=== PATIENT | male | born 1975 | race Two or more races ===

== ENCOUNTER 2019-02-08 11:26 | Emergency (ER) | payer OTHER ==
[~2019-02-08] VITALS: Ht 172.7 cm; Wt 85.9 kg
[2019-02-08 11:31] VITALS: BP 145/91
[2019-02-08] MEDS ORDERED: NO HOME MEDS (11:43)
[2019-02-08] MEDS ORDERED: ketorolac trometh inj. 60 MG/2 ML VIAL IM ONE (12:15)
[2019-02-08] MEDS ORDERED: LIDOcaine 1% W/epiNEPHrine 1:100,000 20ml vial IJ ONE (12:25)
[2019-02-08] MEDS ORDERED: TETanus/Pertussis (Acell)/Diphther VAC/PF (Tdap-Adult) 0.5ml syringe IMVAC ONE (12:30)
[2019-02-08] MEDS ORDERED: IBUP-1985 PO (13:21)
== END 2019-02-08 14:22 | disposition home or self-care (01) ==
LOC: ER 11:27
DX: S01.01XA Laceration without foreign body of scalp, initial encounter (principal); W01.198A Fall on same level from slipping, tripping and stumbling with subsequent striking against other object, initial encounter; Y93.89 Activity, other specified; Y92.89 Other specified places as the place of occurrence of the external cause; Y99.9 Unspecified external cause status
CPT/HCPCS: 12002; 90471; 90715; 96372; 99283; J1885; 99285